=== PATIENT | male | born 1980 | race Caucasian/White ===

== ENCOUNTER 2023-09-20 19:19 | Emergency (ER) | payer OTHER ==
[2023-09-20 19:36] VITALS: BMI 26.5
[2023-09-20 20:54] LABS: BASO % 0.6 % (0-2.0); EOS % 1.1 % (0-4.5); HEMATOCRIT 47.1 % (35.4-49); HEMOGLOBIN 16.2 GM/dL (11.7-16.9); LYMPH % 43.9 % (8-40); MCH 32.5 pg (25.7-33.7); MCHC 34.4 g/dl (32.0-35.9); MEAN CELL VOLUME 94.5 fl (80-96); MEAN PLT VOLUME 6.5 fl (7.5-11.1); MONO % 8.2 % (3.8-10.2); NEUT % 46.2 % (42.8-82.8); PLATELET COUNT 172 10^3/uL (134-434); RBC 4.99 M/mm3 (4.00-5.60); RDW 13.6 % (11.9-15.9); WHITE BLOOD COUNT 5.9 K/mm3 (4.0-10.0)
[2023-09-20 21:16] LABS: POTASSIUM 3.3 mmol/L (3.5-5.1)
[2023-09-20 21:18] LABS: CALCIUM 8.7 mg/dL (8.5-10.1)
[2023-09-20 21:19] LABS: ALBUMIN 4.1 g/dl (3.4-5.0); BLOOD UREA NITROGEN 12.6 mg/dL (7-18)
[2023-09-20 21:22] LABS: CREATININE 0.9 mg/dL (0.55-1.3)
[2023-09-20 21:23] LABS: BILIRUBIN,TOTAL 0.2 mg/dL (0.2-1); TOT PROT 7.5 g/dl (6.4-8.2)
[2023-09-21 06:20] VITALS: BP 129/88; PULSE 74; RESP 18; TEMP 98.6
== END 2023-09-21 13:10 | disposition home or self-care (01) ==
LOC: JER 19:19
DX: R45.851 Suicidal ideations (principal); F10.129 Alcohol abuse with intoxication, unspecified; Z20.822 Contact with and (suspected) exposure to COVID-19
CPT/HCPCS: 0241U-QW; 36415; 80053; 80307; 85025; 93005; 93010; 99284-25

== ENCOUNTER 2023-09-21 13:32 | Inpatient (IN) | payer OTHER ==
[2023-09-21 15:36] VITALS: BMI 28.7
[2023-09-21] MEDS ORDERED: BENZONATATE 200 MG CAPSULE PO PRN (19:01)
[2023-09-21] MEDS ORDERED: guaiFENesin 600 MG TABLET.ER (FP) PO PRN (19:01)
[2023-09-21] MEDS ORDERED: ONDANSETRON *ODT* 4 MG TABLET SL PRN (19:01)
[2023-09-21] MEDS ORDERED: BENZOCAINE/MENTHOL (CHLORASEPTIC ) LOZENGE MM PRN (19:01)
[2023-09-21] MEDS ORDERED: MAG HYDROX/AL HYDROX/SIMETH 30 ML UNIT-DOSE CUP PO PRN (19:01)
[2023-09-21] MEDS ORDERED: LOPERAMIDE HCL 2 MG CAPSULE PO PRN (19:01)
[2023-09-21] MEDS ORDERED: ACETAMINOPHEN 325 MG TABLET (FP) PO PRN (19:01)
[2023-09-21] MEDS ORDERED: P-EPHED 60MG/TRIPROLIDI 2.5MG TABLET PO PRN (19:01)
[2023-09-21] MEDS ORDERED: IBUPROFEN 400 MG TABLET (FP) PO PRN (19:01)
[2023-09-21] MEDS ORDERED: DICYCLOMINE HCL 10 MG CAPSULE PO PRN (19:01)
[2023-09-21] MEDS ORDERED: IBUPROFEN 600 MG TABLET (FP) PO PRN (19:01)
[2023-09-21] MEDS ORDERED: POLYETHYLENE GLYCOL (HEALTHYLAX) 3350 17 GM PACKET PO PRN (19:01)
[2023-09-21] MEDS ORDERED: MAGNESIUM HYDROX 2400MG/30ML ORAL SUSPENSION 30 ML CUP PO PRN (19:01)
[2023-09-21] MEDS ORDERED: METHOCARBAMOL 500 MG TABLET PO PRN (19:01)
[2023-09-21] MEDS ORDERED: BISMUTH SUBSALICYLATE 524 MG/30 ML PO PRN (19:01)
[2023-09-21] MEDS ORDERED: propRANOLol HCL 10 MG TABLET PO ONE (19:02)
[2023-09-21] MEDS: hydrOXYzine PAMOATE 25 MG CAPSULE (FP) PO PRN (19:59)
[2023-09-21] MEDS: THIAMINE HCL 100 MG TABLET (FP) PO SCH (22:41)
[2023-09-21] MEDS: MELATONIN 5 MG TABLETS PO SCH (22:41)
[2023-09-22] MEDS: hydrOXYzine PAMOATE 25 MG CAPSULE (FP) PO PRN (10:23)
[2023-09-22] MEDS: PRENATAL VITAMINS W/ FOLIC ACID TABLET (FP) PO SCH (10:23)
[2023-09-22] MEDS: amLODIPine BESYLATE 2.5 MG TABLET (FP) PO SCH (10:57)
[2023-09-22] MEDS: MELATONIN 5 MG TABLETS PO SCH (22:47)
[2023-09-22] MEDS: THIAMINE HCL 100 MG TABLET (FP) PO SCH (22:48)
[2023-09-23 07:25] VITALS: RESP 16
[2023-09-23 09:36] VITALS: BP 125/81; PULSE 61; TEMP 98.6
[2023-09-23] MEDS: PRENATAL VITAMINS W/ FOLIC ACID TABLET (FP) PO SCH (10:41)
[2023-09-23] MEDS: amLODIPine BESYLATE 2.5 MG TABLET (FP) PO SCH (10:41)
== END 2023-09-23 13:09 | disposition home or self-care (01) | DRG 775 ==
LOC: YASAS 13:32 → Y6N 19:25
PROVIDERS: ADMIT Allergy & Immunology; ATTEND Surgery
PROC: HZ2ZZZZ Detoxification Services for Substance Abuse Treatment (ICD-10-PCS; principal; 2023-09-21)
DX: F10.280 Alcohol dependence with alcohol-induced anxiety disorder (principal); F10.20 Alcohol dependence, uncomplicated; F12.20 Cannabis dependence, uncomplicated; F10.282 Alcohol dependence with alcohol-induced sleep disorder; Z91.51 Personal history of suicidal behavior; Z87.891 Personal history of nicotine dependence; Z28.310 Unvaccinated for COVID-19; Z28.9 Immunization not carried out for unspecified reason
CPT/HCPCS: 0241U-QW; 36415; 80053; 80307; 85025; 93005; 93010; 99283-25; Q0162